=== PATIENT | male | born 1960 | race Caucasian/White ===

== ENCOUNTER 2017-08-06 21:47 | Emergency (ER) | payer MEDICAID ==
[2017-08-06] MEDS ORDERED: KETOROLAC 60 MG/2 ML VIAL IM STA (22:09)
--- NOTE | 2017-08-06 22:47 | XRAY Report ---
EXAM: LEFT SHOULDER RADIOGRAPHY EXAM DATE: 08/06/2017 10:33 PM. CLINICAL HISTORY: Shoulder pain. COMPARISON: None. TECHNIQUE: 3 views. FINDINGS: Bones: Subtle cortical fracture defect seen along the superior margin of the greater tuberosity. No o ther evidence of fracture or bone lesion. Joints: The glenohumeral and acromioclavicular joints are normal. Soft tissues: The visualized hemithorax is unremarkable. No soft tissue swelling. IMPRESSION: Subtle cortical fracture defect along superior margin of the greater tuberosity, age inde terminate. No other evidence of fracture or dislocation. [facility] Referring Provider Line: [phone] SITE ID: [id number]
--- NOTE | 2017-08-06 23:14 | ED Physician Documentation ---
PD HPI UPPER EXT INJURY - Stated complaint Stated Complaint: SHOULDER INJURY - Chief complaint Chief Complaint: Ext Problem - History obtained from History obtained from: Patient, Family - History of Present Illness Location: Left, Shoulder Where injury occurred: Home Timing - onset: Chronic Timing - duration: Weeks Timing - details: Gradual onset, Still present Improved by: Rest, Ice, Immobilization Worsened by: Moving, Palpating Associated symptoms: No: Swelling, Discolored Similar symptoms before: No diagnosis Recently seen: Not recently seen - Additonal information Additional information: Patient is a 56 year old male with a history of prior shoulder fracture about 15 years ago who is presenting to the emergency department for shoulder pain. 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 patient denies any acute falls or other trauma. patient was complaining about pain tonight to his girlfriend so she made him come in for evaluation. Review of Systems Constitutional: denies: Fever, Chills Eyes: reports: Reviewed and negative Ears: reports: Reviewed and negative Nose: reports: Reviewed and negative Throat: reports: Reviewed and negative Cardiac: reports: Reviewed and negative Respiratory: reports: Reviewed and negative GI: reports: Reviewed and negative : reports: Reviewed and negative Skin: reports: Reviewed and negative Musculoskeletal: reports: Extremity pain, Joint pain, Joint swelling. denies: Extremity swelling Neurologic: denies: Generalized weakness, Focal weakness, Numbness, Headache, Head injury Immunocompromised: denies: Immunocompromised PD PAST MEDICAL HISTORY - Past Medical History Past Medical History: No - Past Surgical History Past Surgical History: No - Present Medications Home Medications: Ambulatory Orders Medication Instructions Recorded Confirmed Albuterol Sulfate [Proair Hfa 1 - 2 puffs INH Q4H PRN 08/06/17 08/06/17 Inhaler] - Allergies Allergies/Adverse Reactions: Allergies Allergy/AdvReac Type Severity Reaction Status Date / Time No Known Drug Allergies Allergy Verified 08/06/17 21:53 - Social History Does the pt smoke?: Yes Smoking Status: Current every day smoker Does the pt drink ETOH?: No Does the pt have substance abuse?: Yes Substance Use and Type: Marijuana - Immunizations Immunizations are current?: Yes - POLST Patient has POLST: No PD ED PE NORMAL - Vitals Vital signs reviewed: Yes - General General: Alert and oriented X 3, No acute distress, Well developed/nourished - HEENT HEENT: Atraumatic, PERRL - Neck Neck: Supple, no meningeal sign, No JVD - Cardiac Cardiac: RRR, No murmur - Respiratory Respiratory: No respiratory distress - Abdomen Abdomen: Soft, Non tender, Non distended - Derm Derm: Normal color, Warm and dry, No rash - Neuro Neuro: Alert and oriented X 3, No motor deficit, No sensory deficit, Normal speech - Psych Psych: Normal mood PD ED PE EXPANDED - Extremities Extremities: Left shoulder (mild tenderness to palpation of left shoulder, full rom), Motor intact, Sensory intact, Vascular intact, Tendon intact Results - Vitals Vitals: Vital Signs - 24 hr 08/06/17 08/06/17 21:51 23:22 Temperature 36.9 C Heart Rate 59 L 60 Respiratory 18 18 Rate Blood Pressure 115/79 121/78 O2 Saturation 99 98 Oxygen O2 Source Room air - Rads (name of study) left shoulder Radiology: Final report received (age indeterminite left shoulder fracture) PD MEDICAL DECISION MAKING - ED course Complexity details: reviewed old records, reviewed results, re-evaluated patient , considered differential, d/w patient, d/w family ED course: Patient was seen and examined at bedside. patient was treated with toradol and sent for imaging. When patient returned the results were reviewed. there was no acute fracture or dislocation. patient and family were made aware of the findings and given detailed discharge and return instructions. patient required no further work up and was stable for discharge with outpatient follow up. Departure - Departure Disposition: 01 Home, Self Care Clinical Impression: Tendonitis Condition: Good Instructions: ED Tendinitis Calcific Follow-Up: Hugh Momin MD [Provider Admit Priv/Credential] - Within 1 week Comments: Your x-ray today showed only an old fracture. There is no acute fracture or dislocation. X-rays are only helpful for bony injuries. In order to see the soft tissue (muscles, ligaments, etc) you would need an mri. You should continue to ice your shoulder and alternate between acetaminophen and ibuprofen (or other nsaid). You should follow up with your doctor or the orthopedic doctor for further evaluation and care. Discharge Date/Time: 08/06/17 23:23
[2017-08-06 23:23] VITALS: BP 121/78
== END 2017-08-06 23:23 | disposition home or self-care (01) ==
LOC: ED 21:47
DX: M75.92 Shoulder lesion, unspecified, left shoulder (principal); Z87.81 Personal history of (healed) traumatic fracture; F17.200 Nicotine dependence, unspecified, uncomplicated
CPT/HCPCS: 96372; 99283

== ENCOUNTER 2017-09-01 08:23 | Emergency (ER) | payer MEDICAID ==
[2017-09-01 08:35] VITALS: BP 131/86
--- NOTE | 2017-09-01 08:56 | ED Physician Documentation ---
History of Present Illness - Stated complaint Stated Complaint: ASTHMA - Chief complaint Chief Complaint: Resp - History obtained from History obtained from: Patient - History of Present Illness Timing: Today Pain level max: 0 Pain level now: 0 Improved by: rest Worsened by: walking - Additonal information Additional information: out of his albuterol inhaler. needs refill. currently asymptomatic. Review of Systems Constitutional: denies: Fever Cardiac: denies: Chest pain / pressure Respiratory: denies: Cough PD PAST MEDICAL HISTORY - Past Medical History Past Medical History: Yes Respiratory: Asthma - Past Surgical History Past Surgical History: No - Present Medications Home Medications: Ambulatory Orders Medication Instructions Recorded Confirmed Albuterol Sulfate [Proair Hfa 1 - 2 puffs INH Q4H PRN 08/06/17 08/06/17 Inhaler] Albuterol Sulfate [Proair Hfa 1 - 2 puffs INH Q4H PRN #1 inhaler 09/01/17 Inhaler] - Allergies Allergies/Adverse Reactions: Allergies Allergy/AdvReac Type Severity Reaction Status Date / Time No Known Drug Allergies Allergy Verified 08/06/17 21:53 - Social History Does the pt smoke?: Yes Smoking Status: Current every day smoker Does the pt drink ETOH?: No Does the pt have substance abuse?: Yes - Immunizations Immunizations are current?: Yes - POLST Patient has POLST: No PD ED PE NORMAL - Vitals Vital signs reviewed: Yes - General General: Alert and oriented X 3, No acute distress - HEENT HEENT: Moist mucous membranes - Neck Neck: Supple, no meningeal sign - Cardiac Cardiac: RRR - Respiratory Respiratory: No respiratory distress, Other (mild wheezing B) - Derm Derm: Warm and dry - Neuro Neuro: Alert and oriented X 3 Results - Vitals Vitals: Vital Signs - 24 hr 09/01/17 08:32 Temperature 36.8 C Heart Rate 88 Respiratory 17 Rate Blood Pressure 131/86 H O2 Saturation 100 Oxygen O2 Source Room air PD MEDICAL DECISION MAKING - ED course Complexity details: considered differential, d/w patient ED course: Patient is a 56-year-old male who is out of his albuterol inhaler. Otherwise no complaints. No respiratory distress. No fever. No hypoxia. Will refill his inhaler and follow-up with his doctor. Patient counseled regarding signs and symptoms for which I believe and urgent re-evaluation would be necessary. Patient with good understanding of and agreement to plan and is comfortable going home at this time This document was made in part using voice recognition software. While efforts are made to proofread this document, sound alike and grammatical errors may occur. Departure - Departure Disposition: 01 Home, Self Care Clinical Impression: Asthma Qualifiers: Asthma severity: unspecified severity Asthma persistence: unspecified Asthma complication type: unspecified Qualified Code(s): J45.909 - Unspecified asthma, uncomplicated Condition: Good Instructions: ED Reactive Airway Disease Follow-Up: your,doctor as needed [Other] Prescriptions: Albuterol Sulfate [Proair Hfa Inhaler] 1 - 2 puffs INH Q4H PRN #1 inhaler PRN Reason: Shortness Of Air/Wheezing Comments: Return if you worsen.
== END 2017-09-01 09:15 | disposition home or self-care (01) ==
LOC: ED 08:23
DX: Z76.0 Encounter for issue of repeat prescription (principal); J45.909 Unspecified asthma, uncomplicated; F17.200 Nicotine dependence, unspecified, uncomplicated
CPT/HCPCS: 99283

== ENCOUNTER 2018-06-29 18:04 | Emergency (ER) | payer MEDICAID ==
--- NOTE | 2018-06-29 18:53 | ED Physician Documentation ---
PD HPI OPHTHO - Stated complaint Stated Complaint: R EYE VISION CHANGES - Chief complaint Chief Complaint: Neuro - History obtained from History obtained from: Patient - History of Present Illness Timing - onset: Other (Blurry vision in R eye for 6 months but worse since since yesterday with floaters since yesterday.) Review of Systems Constitutional: reports: Reviewed and negative Eyes: reports: Loss of vision, Decreased vision. denies: Photophobia, Discharge, Irritation Ears: denies: Loss of hearing, Ear pain Nose: denies: Rhinorrhea / runny nose, Congestion PD PAST MEDICAL HISTORY - Past Medical History Respiratory: Asthma - Past Surgical History Past Surgical History: No - Present Medications Home Medications: Ambulatory Orders Medication Instructions Recorded Confirmed Albuterol Sulfate [Proair Hfa 1 - 2 puffs INH Q4H PRN #1 inhaler 09/01/17 Inhaler] - Allergies Allergies/Adverse Reactions: Allergies Allergy/AdvReac Type Severity Reaction Status Date / Time No Known Drug Allergies Allergy Verified 06/29/18 18:10 - Social History Does the pt smoke?: Yes Smoking Status: Current every day smoker Does the pt drink ETOH?: No Does the pt have substance abuse?: Yes - Immunizations Immunizations are current?: Yes - POLST Patient has POLST: No PD ED PE NORMAL - Vitals Vital signs reviewed: Yes - General General: Alert and oriented X 3, No acute distress - HEENT HEENT: PERRL, EOMI, Other (Unable to see fundus on nondilated eye exam) - Neck Neck: Supple, no meningeal sign, No bony TTP - Neuro Neuro: Alert and oriented X 3, online publisher 2-12 intact, Normal speech Eye Opening: Spontaneous Motor: Obeys Commands Verbal: Oriented GCS Score: 15 - Psych Psych: Normal mood, Normal affect Results - Vitals Vitals: Vital Signs - 24 hr 06/29/18 18:06 Temperature 36.5 C Heart Rate 86 Respiratory 18 Rate Blood Pressure 143/95 H O2 Saturation 99 Oxygen O2 Source Room air Departure - Departure Disposition: 01 Home, Self Care Clinical Impression: Vitreous detachment of right eye Condition: Good Record reviewed to determine appropriate education?: Yes Instructions: Flashes and Floaters Follow-Up: Guerrero Jensen MD [Provider Admit Priv/Credential] - Tomorrow Comments: Call Dr. Jensen's office first thing tomorrow. You should see him or another water meter installer tomorrow for an evaluation for what is likely a vitreous detachment. Return for new or worsening symptoms. Return tomorrow morning if unable to obtain ophthalmologic follow-up tomorrow. Your blood pressure was elevated today on check into the emergency department. This does not mean that you have hypertension, it is a common phenomenon to come to the emergency department and have elevated blood pressure. I recommend that you see your primary care physician within the week to have it rechecked when you are feeling better.
[2018-06-29 19:27] VITALS: BP 123/87
== END 2018-06-29 19:27 | disposition home or self-care (01) ==
LOC: ED 18:04
DX: H43.811 Vitreous degeneration, right eye (principal); R03.0 Elevated blood-pressure reading, without diagnosis of hypertension
CPT/HCPCS: 99282; 99283

== ENCOUNTER 2018-11-07 00:31 | Emergency (ER) | payer MEDICAID ==
--- NOTE | 2018-11-07 01:21 | ED Physician Documentation ---
PD HPI SKIN - Stated complaint Stated Complaint: BILAT LEG PX - Chief complaint Chief Complaint: Wound - History obtained from History obtained from: Patient - History of Present Illness Timing - onset: How many days ago (10) Timing - duration: Days (10) Timing - details: Gradual onset, Still present Location: RLE, LLE Quality / character: Painful, Discolored, Raised, Crusted, Swelling, Draining Similar symptoms before: Has not had sx before Recently seen: Surgery - Additional information Additional information: 58-year-old previously well male has developed a number of erythematous boils to both of his lower extremities about 10 days ago. These have become increasingly erythematous and painful. Specifically one abscess on his anterior thigh above the knee has become extremely painful. 1 of them has drained. He notes that about 3 weeks ago he had a retinal surgery for a detached retina and the he developed a boil on his cheek. That boil appeared to resolve and now he has these boils on his legs. He has not had this previously. He does have a son who did get MRSA from a hospital. Review of Systems Constitutional: denies: Fever, Chills, Myalgias Eyes: reports: Decreased vision (improved dramatically with surgery) Ears: denies: Ear pain Nose: denies: Congestion Throat: denies: Sore throat Cardiac: denies: Chest pain / pressure, Palpitations Respiratory: denies: Dyspnea, Cough GI: denies: Abdominal Pain, Nausea, Vomiting : denies: Dysuria, Frequency Skin: reports: Lesions. denies: Rash Musculoskeletal: reports: Extremity pain. denies: Neck pain, Back pain Neurologic: denies: Generalized weakness, Focal weakness, Numbness PD PAST MEDICAL HISTORY - Past Medical History Past Medical History: Yes Respiratory: Asthma - Past Surgical History Past Surgical History: Yes HEENT: Detached retina repair - Present Medications Home Medications: Ambulatory Orders Medication Instructions Recorded Confirmed Albuterol Sulfate [Proair Hfa 1 - 2 puffs INH Q4H PRN #1 inhaler 09/01/17 11/07/18 Inhaler] Hydrocodone/Acetaminophen 1 - 2 each PO Q6H PRN #14 tablet 11/07/18 [Hydrocodon-Acetaminophen 5-325] Sulfamethoxazole/Trimethoprim 1 each PO BID #14 tablet 11/07/18 [Sulfamethoxazole-Tmp Ds Tablet] - Allergies Allergies/Adverse Reactions: Allergies Allergy/AdvReac Type Severity Reaction Status Date / Time No Known Drug Allergies Allergy Verified 11/07/18 00:40 - Social History Does the pt smoke?: Yes Smoking Status: Current every day smoker Does the pt drink ETOH?: No Does the pt have substance abuse?: Yes Substance Use and Type: Marijuana - Immunizations Immunizations are current?: Yes - POLST Patient has POLST: No PD ED PE NORMAL - Vitals Vital signs reviewed: Yes (tachy hypertensive ) - General General: Alert and oriented X 3, No acute distress, Well developed/nourished - HEENT HEENT: Atraumatic, EOMI, Other (The right eye has injected sclera ) - Respiratory Respiratory: No respiratory distress - Derm Derm: Normal color, Warm and dry, Other (multiple boils. 2-3 cm round firm and tender. The boil above the knee on the right is most tender and there is a head to this but no underlying fluctuance. ) - Extremities Extremities: No deformity, Other - Neuro Neuro: Alert and oriented X 3, No motor deficit, No sensory deficit, Normal speech Eye Opening: Spontaneous Motor: Obeys Commands Verbal: Oriented GCS Score: 15 - Psych Psych: Normal mood, Normal affect PD ED PE EXPANDED - Extremities DIMPLE LE visual: 1 - abscess (4cm) 2 - abscess (5cm) 3 - abscess (2cm) 4 - abscess (1cm) 5 - abscess (1cm) 6 - abscess (6cm) 7 - abscess (1cm) Results - Vitals Vitals: Vital Signs - 24 hr 11/07/18 00:37 Temperature 36.3 C L Heart Rate 113 H Respiratory 18 Rate Blood Pressure 127/81 H O2 Saturation 100 Oxygen O2 Source Room air PD MEDICAL DECISION MAKING - ED course Complexity details: reviewed old records, considered differential, d/w patient ED course: 58-year-old male with multiple boils to his lower extremities likely has MRSA looks like it is spreading there are none of these that are fluctuant at this point and he is administered sulfamethoxazole trimethoprim and a culture of 1 of the boils is taken after unroofing the boil. Departure - Departure Disposition: 01 Home, Self Care Clinical Impression: Multiple abscesses of both legs Condition: Stable Instructions: ED Staph Infec Abx Tx Only Follow-Up: [facility] [Provider Group] Prescriptions: Hydrocodone/Acetaminophen [Hydrocodon-Acetaminophen 5-325] 1 - 2 each PO Q6H PRN #14 tablet PRN Reason: pain Sulfamethoxazole/Trimethoprim [Sulfamethoxazole-Tmp Ds Tablet] 1 each PO BID #14 tablet
[2018-11-07] MEDS ORDERED: HYDROcod/ACET 5/325 Prepack 4 PO STA (01:27)
[2018-11-07] MEDS ORDERED: SULFAM/TRIM 800/160 Prepack 2 PO ONE (01:27)
[2018-11-07] MEDS ORDERED: BACITRACIN OINT TOP ONE (01:47)
[2018-11-07 01:52] VITALS: BP 117/78
== END 2018-11-07 02:01 | disposition home or self-care (01) ==
LOC: ED 00:31
DX: L02.415 Cutaneous abscess of right lower limb (principal); L02.416 Cutaneous abscess of left lower limb; F17.200 Nicotine dependence, unspecified, uncomplicated
CPT/HCPCS: 87070; 87077; 87181; 87205; 99283; A9270

== ENCOUNTER 2018-11-11 20:47 | Emergency (ER) | payer MEDICAID ==
[2018-11-11] MEDS ORDERED: CLINDAMYCIN 150 MG CAPSULE PO STA (21:04)
[2018-11-11] MEDS ORDERED: BUFFERED LIDOCAINE 10 ML SYRINGE SUBQ STA (21:04)
--- NOTE | 2018-11-11 21:07 | ED Physician Documentation ---
PD HPI SKIN - Stated complaint Stated Complaint: BILAT LEG SORES - Chief complaint Chief Complaint: Wound - History obtained from History obtained from: Patient - History of Present Illness Timing - onset: Other (3 Weeks ago he had eye surgery. Subsequently developed a big pimple on his face which went away, now has multiple lesions on his legs. Was seen here the other day and 1 of them was incised and drained. He is on Bactrim and the culture grew out MRSA. He is a little worse. No fevers.) Review of Systems Constitutional: denies: Fever, Chills Cardiac: denies: Chest pain / pressure, Palpitations Respiratory: denies: Dyspnea, Cough PD PAST MEDICAL HISTORY - Past Medical History Respiratory: Asthma - Past Surgical History Past Surgical History: Yes HEENT: Detached retina repair - Present Medications Home Medications: Ambulatory Orders Medication Instructions Recorded Confirmed Albuterol Sulfate [Proair Hfa 1 - 2 puffs INH Q4H PRN #1 inhaler 09/01/17 11/11/18 Inhaler] Hydrocodone/Acetaminophen 1 - 2 each PO Q6H PRN #14 tablet 11/07/18 11/11/18 [Hydrocodon-Acetaminophen 5-325] Sulfamethoxazole/Trimethoprim 1 each PO BID #14 tablet 11/07/18 11/11/18 [Sulfamethoxazole-Tmp Ds Tablet] Chlorhexidine Gluconate [Hibiclens] 10 ml TP DAILY #1 bot 11/11/18 Clindamycin HCl [Clindamycin 300MG 300 mg PO Q6H #40 capsule 11/11/18 CAP] Hydrocodone/Acetaminophen 1 - 2 each PO Q6H PRN #10 tablet 11/11/18 [Hydrocodon-Acetaminophen 5-325] Mupirocin 1 gm CHEKO TID #2 oin.pf.karis 11/11/18 - Allergies Allergies/Adverse Reactions: Allergies Allergy/AdvReac Type Severity Reaction Status Date / Time No Known Drug Allergies Allergy Verified 11/11/18 20:53 - Social History Does the pt smoke?: Yes Smoking Status: Current every day smoker Does the pt drink ETOH?: No Does the pt have substance abuse?: Yes - Immunizations Immunizations are current?: Yes - POLST Patient has POLST: No PD ED PE NORMAL - Vitals Vital signs reviewed: Yes - General General: Alert and oriented X 3, No acute distress - Neck Neck: Supple, no meningeal sign, No bony TTP - Derm Derm: Other (He has multiple abscesses on the legs, one on each hamstring, a couple on the right anterior thigh and some smaller ones scattered throughout the thighs.) - Neuro Neuro: Alert and oriented X 3, Normal speech Results - Vitals Vitals: Vital Signs - 24 hr 11/11/18 11/11/18 11/11/18 20:50 22:11 22:23 Temperature 36.6 C Heart Rate 90 76 82 Respiratory 20 18 13 Rate Blood Pressure 123/73 110/78 122/77 O2 Saturation 98 95 97 11/11/18 11/11/18 11/11/18 22:25 22:31 22:36 Temperature Heart Rate 105 H 66 71 Respiratory 22 19 17 Rate Blood Pressure 134/71 H 115/71 101/64 O2 Saturation 98 97 97 Oxygen O2 Source Room air Procedures - Abscess I&D (location) Multiple, both legs Preparation: Alcohol, Lidocaine 1%, Conscious sedation Incision: Incised with scalpel, Other (He had multiple abscesses, 2 decent sized ones to the right anterior thigh, a large one to the hamstring on the right and a large 1 to the hamstring on the left and a small 1 to the lateral left thigh.) Other: Pt tolerated well, Dressing applied - Procedural sedation Sedation prep: Informed consent, Time out completed, Last meal (5pm), PE performed, AHA 2 - mild disease Sedation medications: etomidate (10 mg IVP) Patient status during sedation: Responds to tactile, Vitals remained stable, Maintained airway, Recovered uneventfully Time in sedation (Minutes): 15 PD MEDICAL DECISION MAKING - ED course ED course: 58-year-old gentleman with multiple MRSA abscesses to the lower extremities. He needed some more incision and drainage but really did not tolerate it with just local anesthetic. We trialed some IM Dilaudid and Ativan but still really was not tolerating it so he was sedated with etomidate and the multiple abscesses were incised and deloculated. None was big enough to need packing. He was given clindamycin. Departure - Departure Disposition: 01 Home, Self Care Clinical Impression: Multiple abscesses of both legs Condition: Good Record reviewed to determine appropriate education?: Yes Instructions: ED Abscess IandD Prescriptions: Chlorhexidine Gluconate [Hibiclens] 10 ml TP DAILY #1 bot Clindamycin HCl [Clindamycin 300MG CAP] 300 mg PO Q6H #40 capsule Hydrocodone/Acetaminophen [Hydrocodon-Acetaminophen 5-325] 1 - 2 each PO Q6H PRN #10 tablet PRN Reason: pain Mupirocin 1 gm CHEKO TID #2 oin.pf.karis Comments: Follow-up with your doctor on Tuesday for recheck, if unable return here. Sooner if worse or if running a fever.
[2018-11-11] MEDS ORDERED: LORazepam 2 MG/ML VIAL IM STA (21:16)
[2018-11-11] MEDS ORDERED: HYDROmorphone 1 MG/ML CARPUJECT IM STA (21:16)
[2018-11-11] MEDS ORDERED: ETOMIDATE 40 MG/20 ML VIAL IVP STA (21:57)
[2018-11-11] MEDS ORDERED: HYDROcod/ACET 5/325 Prepack 4 PO STA (22:37)
[2018-11-11 22:42] VITALS: BP 117/73
== END 2018-11-11 23:03 | disposition home or self-care (01) ==
LOC: ED 20:47
DX: L02.416 Cutaneous abscess of left lower limb (principal); L02.415 Cutaneous abscess of right lower limb; B95.62 Methicillin resistant Staphylococcus aureus infection as the cause of diseases classified elsewhere; F17.200 Nicotine dependence, unspecified, uncomplicated
CPT/HCPCS: 10061; 94770; 96372; 99152; 99283; A9270; J1170; J2060

== ENCOUNTER 2019-02-11 12:34 | Emergency (ER) | payer MEDICAID ==
[2019-02-11 12:41] VITALS: BP 119/87
--- NOTE | 2019-02-11 12:52 | ED Physician Documentation ---
PD HPI OPHTHO - Stated complaint Stated Complaint: R EYE PX - Chief complaint Chief Complaint: Heent - History obtained from History obtained from: Patient - History of Present Illness Timing - onset: Other (He had retinal surgery in September for retinal detachment. For the last 4 days he has had flashes and floaters in the right eye peripheral vision.) Timing - details: Abrupt onset (her surgeon was Tracy Post at [facility]) Review of Systems Constitutional: reports: Reviewed and negative Eyes: reports: Loss of vision, Decreased vision. denies: Photophobia, Discharge, Irritation Ears: denies: Loss of hearing, Ear pain PD PAST MEDICAL HISTORY - Past Medical History Past Medical History: Yes Respiratory: Asthma - Past Surgical History Past Surgical History: Yes HEENT: Detached retina repair - Present Medications Home Medications: Ambulatory Orders Medication Instructions Recorded Confirmed Albuterol Sulfate [Proair Hfa 1 - 2 puffs INH Q4H PRN #1 inhaler 09/01/17 11/11/18 Inhaler] Hydrocodone/Acetaminophen 1 - 2 each PO Q6H PRN #14 tablet 11/07/18 11/11/18 [Hydrocodon-Acetaminophen 5-325] Sulfamethoxazole/Trimethoprim 1 each PO BID #14 tablet 11/07/18 11/11/18 [Sulfamethoxazole-Tmp Ds Tablet] Chlorhexidine Gluconate [Hibiclens] 10 ml TP DAILY #1 bot 11/11/18 Clindamycin HCl [Clindamycin 300MG 300 mg PO Q6H #40 capsule 11/11/18 CAP] Hydrocodone/Acetaminophen 1 - 2 each PO Q6H PRN #10 tablet 11/11/18 [Hydrocodon-Acetaminophen 5-325] Mupirocin 1 gm CHEKO TID #2 oin.pf.karis 11/11/18 - Allergies Allergies/Adverse Reactions: Allergies Allergy/AdvReac Type Severity Reaction Status Date / Time No Known Drug Allergies Allergy Verified 11/11/18 20:53 - Social History Does the pt smoke?: Yes Smoking Status: Current every day smoker Does the pt drink ETOH?: No Does the pt have substance abuse?: Yes - Immunizations Immunizations are current?: Yes - POLST Patient has POLST: No PD ED PE NORMAL - Vitals Vital signs reviewed: Yes - General General: Alert and oriented X 3, No acute distress - HEENT HEENT: PERRL, EOMI, Other (Unable to visualize the retina nondilated ophthalmologic exam) - Neck Neck: Supple, no meningeal sign, No bony TTP - Neuro Neuro: Alert and oriented X 3, staff mine warfare officer 2-12 intact, Normal speech - Psych Psych: Normal mood, Normal affect Results - Vitals Vitals: Vital Signs - 24 hr 02/11/19 12:38 Temperature 36.8 C Heart Rate 82 Respiratory 18 Rate Blood Pressure 119/87 H O2 Saturation 100 Oxygen O2 Source Room air PD MEDICAL DECISION MAKING - ED course ED course: 58-year-old gentleman with what sounds like a recurrent vitreous or retinal detachment. I spoke with his surgeon, Dr. Tracy Post who feels that he needs to get seen soon but not today. This was discussed with the [facility] nurse practitioner, Fadi who will arrange for this tomorrow. Departure - Departure Disposition: 01 Home, Self Care Clinical Impression: Vitreous detachment of right eye Condition: Good Record reviewed to determine appropriate education?: Yes Comments: Iris knows about his case, he needs to follow-up with an dish room worker soon. She has the information to make the appointment tomorrow.
== END 2019-02-11 13:48 | disposition home or self-care (01) ==
LOC: ED 12:34
DX: H43.811 Vitreous degeneration, right eye (principal); F17.200 Nicotine dependence, unspecified, uncomplicated
CPT/HCPCS: 99282

== ENCOUNTER 2019-07-07 16:43 | Emergency (ER) | payer MEDICAID ==
[2019-07-07 17:07] VITALS: BP 110/67
--- NOTE | 2019-07-07 17:26 | ED Physician Documentation ---
PD HPI SKIN - Stated complaint Stated Complaint: BOILS ON BOTH LEGS, JOINT PAIN - Chief complaint Chief Complaint: Ext Problem - History obtained from History obtained from: Patient - History of Present Illness Timing - onset: How many days ago (had had skin sores on legs after having eye surgery few weeks ago. Thought to be MRSA and treated with abx. They improved. Having similar type skin sores the past couple days on back of leg and anterior knee. Feeling achy in joints.) Timing - duration: Days (couple of days on current sores.) Timing - details: Gradual onset Location: RLE (back of thigh), LLE (skin anterior knee) Quality / character: Discolored (red), Swelling. No: Vesicular, Draining Associated symptoms: Myalgias, Joint pain. No: Fever, N/V/D Similar symptoms before: Diagnosis (recent similar lesions Dx as MRSA) Review of Systems Constitutional: reports: Myalgias. denies: Fever, Chills Nose: denies: Rhinorrhea / runny nose, Congestion Throat: denies: Sore throat Respiratory: denies: Cough GI: denies: Nausea, Vomiting, Diarrhea : denies: Dysuria, Discharge PD PAST MEDICAL HISTORY - Past Medical History Cardiovascular: None Respiratory: Asthma Neuro: None Endocrine/Autoimmune: None - Past Surgical History Past Surgical History: Yes HEENT: Detached retina repair - Present Medications Home Medications: Ambulatory Orders Medication Instructions Recorded Confirmed Albuterol Sulfate [Proair Hfa 1 - 2 puffs INH Q4H PRN #1 inhaler 09/01/17 11/11/18 Inhaler] Hydrocodone/Acetaminophen 1 - 2 each PO Q6H PRN #14 tablet 11/07/18 11/11/18 [Hydrocodon-Acetaminophen 5-325] Sulfamethoxazole/Trimethoprim 1 each PO BID #14 tablet 11/07/18 11/11/18 [Sulfamethoxazole-Tmp Ds Tablet] Chlorhexidine Gluconate [Hibiclens] 10 ml TP DAILY #1 bot 11/11/18 Clindamycin HCl [Clindamycin 300MG 300 mg PO Q6H #40 capsule 11/11/18 CAP] Hydrocodone/Acetaminophen 1 - 2 each PO Q6H PRN #10 tablet 11/11/18 [Hydrocodon-Acetaminophen 5-325] Mupirocin 1 gm CHEKO TID #2 oin.pf.karis 11/11/18 Chlorhexidine Gluconate [Hibiclens] 15 ml TP DAILY #236 ml 07/07/19 Ibuprofen [Motrin] 600 mg PO TID PRN #25 tab 07/07/19 Mupirocin 1 applic TP TID #15 g 07/07/19 Sulfamethox/Trimeth 800/160 1 each PO BID #14 tablet 07/07/19 [Bactrim Ds 800/160] - Allergies Allergies/Adverse Reactions: Allergies Allergy/AdvReac Type Severity Reaction Status Date / Time No Known Drug Allergies Allergy Verified 07/07/19 17:02 - Social History Does the pt smoke?: Yes Smoking Status: Current every day smoker Does the pt drink ETOH?: No Does the pt have substance abuse?: Yes - Immunizations Immunizations are current?: Yes - POLST Patient has POLST: No PD ED PE NORMAL - Vitals Vital signs reviewed: Yes - General General: Alert and oriented X 3, No acute distress, Well developed/nourished - Neck Neck: Supple, no meningeal sign, No adenopathy - Cardiac Cardiac: RRR, No murmur - Respiratory Respiratory: Clear bilaterally - Abdomen Abdomen: Soft, Non tender - Back Back: No CVA TTP - Derm Derm: Normal color - Extremities Extremities: Other (few skin lesions: left anterior knee skin, posterior thigh right and left side. All are red with local tenderness. No ulcerations. No drain age. There is central mild induration. No fluctuance. Each is small about 2-3 cm. The knee does not have bursal nor joint effusion nor tenderness nor restricted ROM. ) - Neuro Neuro: Alert and oriented X 3, No motor deficit, Normal speech Results - Vitals Vitals: Oxygen O2 Source Room air PD MEDICAL DECISION MAKING - ED course Complexity details: considered differential (superficial abscesses without fluctuance. recent MRSA on legs after eye surgery. Recurring early lesions similar to prior. ), d/w patient Departure - Departure Disposition: 01 Home, Self Care Clinical Impression: Multiple abscesses of both legs Condition: Stable Record reviewed to determine appropriate education?: Yes Instructions: ED Staph Infec Abx Tx Only Prescriptions: Chlorhexidine Gluconate [Hibiclens] 15 ml TP DAILY #236 ml Ibuprofen [Motrin] 600 mg PO TID PRN #25 tab PRN Reason: Pain Mupirocin 1 applic TP TID #15 g Sulfamethox/Trimeth 800/160 [Bactrim Ds 800/160] 1 each PO BID #14 tablet Comments: Cleanse the area of the infections with soap and water and apply mupirocin 2-3 times a day. Bactrim antibiotic twice daily for a week for the infection. Use chlorhexidine on your whole body daily during your showers to reduce the germ load on your skin overall. Ibuprofen 3 times a day for inflammation and pain. Add Tylenol if needed for pain. Recheck if not improving well over the next several days. Discharge Date/Time: 07/07/19 18:15
[2019-07-07] MEDS ORDERED: IBUPROFEN 600 MG TABLET PO STA (18:00)
[2019-07-07] MEDS ORDERED: SULFAMETH/TRIMETH DS 800/160 MG TABLET PO STA (18:00)
[2019-07-07] MEDS ORDERED: MUPIROCIN 2% OINT 1 GM TOP STA (18:00)
== END 2019-07-07 18:15 | disposition home or self-care (01) ==
LOC: ED 16:43
DX: L02.416 Cutaneous abscess of left lower limb (principal); L02.415 Cutaneous abscess of right lower limb; Z86.14 Personal history of Methicillin resistant Staphylococcus aureus infection; F17.200 Nicotine dependence, unspecified, uncomplicated
CPT/HCPCS: 99284; A9270

== ENCOUNTER 2019-07-10 12:00 | Emergency (ER) | payer MEDICAID ==
--- NOTE | 2019-07-10 13:17 | ED Physician Documentation ---
PD HPI LOWER EXT INJURY - Stated complaint Stated Complaint: L FOOT INJ - Chief complaint Chief Complaint: Ext Problem - History obtained from History obtained from: Patient - History of Present Illness PD HPI LOW EXT INJURY LOCATION: Left, Toe Type of injury: Other (He states he was walking quite a bit over the last few days approximately 8 to 10 miles. He had had a previous callus of the bottom of the toe. It seemed to have loosened up and then the skin fell off as he took his shoe off. It is very tender while he had been walking and is more tender now with it exposed. No purulence from the area. He had been recently seen for some skin sores that look like staph infections. He states the redness of these has decreased though not fully resolved. He has been on antibiotics couple of days.). No: Twist, Blunt / blow Where injury occurred: Street (He states he has been walking quite a bit as he does not have regular transportation.) Timing - onset: How many days ago (1-2) Timing - duration: Days (1-2 days Having soreness on the toe while he has been walking and then it got considerably more sore when some skin peeled off last night.) Timing - details: Gradual onset Worsened by: Palpating Associated symptoms: No: Weakness, Numbness, Swelling Similar symptoms before: Has not had sx before Recently seen: Emergency Dept (Recently seen for an unrelated skin sores on the left anterior knee and both thighs. He states the redness of these has decreased though not resolved yet) Review of Systems Constitutional: denies: Fever, Chills GI: denies: Nausea, Vomiting, Diarrhea Skin: reports: Lesions (Recent skin redness and tenderness areas that are decreasing) PD PAST MEDICAL HISTORY - Past Medical History Cardiovascular: None Respiratory: Asthma Neuro: None Endocrine/Autoimmune: None - Past Surgical History Past Surgical History: Yes HEENT: Detached retina repair - Present Medications Home Medications: Ambulatory Orders Medication Instructions Recorded Confirmed Albuterol Sulfate [Proair Hfa 1 - 2 puffs INH Q4H PRN #1 inhaler 09/01/17 11/11/18 Inhaler] Hydrocodone/Acetaminophen 1 - 2 each PO Q6H PRN #14 tablet 11/07/18 11/11/18 [Hydrocodon-Acetaminophen 5-325] Sulfamethoxazole/Trimethoprim 1 each PO BID #14 tablet 11/07/18 11/11/18 [Sulfamethoxazole-Tmp Ds Tablet] Chlorhexidine Gluconate [Hibiclens] 10 ml TP DAILY #1 bot 11/11/18 Clindamycin HCl [Clindamycin 300MG 300 mg PO Q6H #40 capsule 11/11/18 CAP] Hydrocodone/Acetaminophen 1 - 2 each PO Q6H PRN #10 tablet 11/11/18 [Hydrocodon-Acetaminophen 5-325] Mupirocin 1 gm CHEKO TID #2 oin.pf.karis 11/11/18 Chlorhexidine Gluconate [Hibiclens] 15 ml TP DAILY #236 ml 07/07/19 Ibuprofen [Motrin] 600 mg PO TID PRN #25 tab 07/07/19 Mupirocin 1 applic TP TID #15 g 07/07/19 Sulfamethox/Trimeth 800/160 1 each PO BID #14 tablet 07/07/19 [Bactrim Ds 800/160] - Allergies Allergies/Adverse Reactions: Allergies Allergy/AdvReac Type Severity Reaction Status Date / Time No Known Drug Allergies Allergy Verified 07/07/19 17:02 - Social History Does the pt smoke?: Yes Smoking Status: Current every day smoker Does the pt drink ETOH?: No Does the pt have substance abuse?: Yes - Immunizations Immunizations are current?: Yes - POLST Patient has POLST: No PD ED PE NORMAL - Vitals Vital signs reviewed: Yes - General General: Alert and oriented X 3, No acute distress, Well developed/nourished - Cardiac Cardiac: RRR, No murmur - Respiratory Respiratory: Clear bilaterally - Abdomen Abdomen: Soft, Non tender - Derm Derm: Normal color, Warm and dry - Extremities Extremities: Other (The previous redness and tender areas on both thighs and the left knee are appearing decreased from my previous exam 2 and half days ago. The left knee still has some medium redness anteriorly but there is no effusion noted in the bursa nor joint. He has good full extension. There is no area of fluctuance. The bottom of the left great toe shows a avulsion of skin with some dirt and small bit of hairs within the wound. These clean out easily. There is no signs of infection. It is an area of skin avulsion consistent with a prior callus that rubbed loose. The base of the exposed tissue is showing partial thickness dermal and no areas of fatty tissue and it is a pink base without any yellowness or purulence. There is no surrounding redness.) - Neuro Neuro: No motor deficit, No sensory deficit Results - Vitals Vitals: Vital Signs - 24 hr 07/10/19 07/10/19 12:05 14:44 Temperature 36.9 C Heart Rate 92 88 Respiratory 18 16 Rate Blood Pressure 108/58 L 110/60 O2 Saturation 98 100 Oxygen O2 Source Room air PD MEDICAL DECISION MAKING - ED course Complexity details: reviewed old records, considered differential (Appears to be a avulsed callus with exposure of the deeper dermal tissue but no signs of infection. It is on the mostly entire distal phalanx plantar pad.) Departure - Departure Disposition: 01 Home, Self Care Clinical Impression: Avulsion of skin of toe Qualifiers: Encounter type: initial encounter Qualified Code(s): S91.109A - Unspecified open wound of unspecified toe(s) without damage to nail, initial encounter Condition: Stable Record reviewed to determine appropriate education?: Yes Instructions: ED Wound Care Comments: Continue your current medications. Use the antibiotic ointment to the toe as well. Nonadherent bandage to it. This will be slow but should heal in with basically the callus having come off. It does not look infected at this time. Discharge Date/Time: 07/10/19 14:43
[2019-07-10] MEDS ORDERED: ACETAMINOPHEN 325 MG TABLET PO STA (13:39)
[2019-07-10] MEDS ORDERED: IBUPROFEN 600 MG TABLET PO STA (13:39)
[2019-07-10] MEDS ORDERED: MUPIROCIN 2% OINT 1 GM TOP STA (13:39)
[2019-07-10] MEDS ORDERED: LIDOCAINE JELLY 2% 5 ML TUBE TOP STA (13:39)
[2019-07-10 14:45] VITALS: BP 110/60
== END 2019-07-10 14:43 | disposition home or self-care (01) ==
LOC: ED 12:00
DX: S91.102A Unspecified open wound of left great toe without damage to nail, initial encounter (principal); X58.XXXA Exposure to other specified factors, initial encounter; Y93.01 Activity, walking, marching and hiking; Y92.410 Unspecified street and highway as the place of occurrence of the external cause; F17.200 Nicotine dependence, unspecified, uncomplicated
CPT/HCPCS: 99282; A9270; J3490